=== PATIENT | female | born 1940 | race American Indian/Alaskan Native ===

== ENCOUNTER 2017-04-16 17:22 | Emergency (ER) | payer MEDICARE ==
--- NOTE | 2017-04-16 17:34 | ED PDOC ---
Arrival/HPI - General Time Seen by Provider: 04/16/17 17:27 Historian: Patient - History of Present Illness Narrative History of Present Illness (Text): 04/16/17 17:29 76 y/o female, pmh including DVT/PE/vertigo/cystitis, nkda, on coumadin 4mg po qd (last INR doesn't remember), c/o lower back pain x 2 days with no fall or trauma. aching pain, tightness sensation, no urinary symptoms, no fall or trauma, no chest pain or shortness of breath, no urinary or bowel incontinence or retention, non radiating pain, no other medical or psychological complaints. Past Medical History - Provider Review Nursing Documentation Reviewed: Yes - Infectious Disease Hx of Infectious Diseases: None - Tetanus Immunization Tetanus Immunization: Unknown - Cardiac Hx Hypertension: Yes - Pulmonary Hx Respiratory Disorders: No - Neurological Hx Neurological Disorder: No - HEENT Hx HEENT Disorder: Yes (eye glasses) - Renal Hx Renal Disorder: No - Endocrine/Metabolic Hx Endocrine Disorders: No - Hematological/Oncological Hx Blood Disorders: No - Integumentary Hx Dermatological Disorder: No - Musculoskeletal/Rheumatological Hx Arthritis: Yes - Gastrointestinal Hx Gastrointestinal Disorders: No - Genitourinary/Gynecological Hx Genitourinary Disorders: No - Psychiatric Hx Depression: No Hx Emotional Abuse: No Hx Physical Abuse: No Hx Substance Use: No - Past Surgical History Past Surgical History: No Previous - Surgical History Other/Comment: "DVT Filters" PE - Anesthesia Hx Anesthesia: No Hx Anesthesia Reactions: No Hx Malignant Hyperthermia: No - Suicidal Assessment Feels Threatened In Home Enviroment: No Family/Social History - Physician Review Nursing Documentation Reviewed: Yes Family/Social History: Unknown Family HX Smoking Status: Never Smoked Hx Alcohol Use: No Hx Substance Use: No Hx Substance Use Treatment: No Allergies/Home Meds Allergies/Adverse Reactions: Allergies No Known Allergies Allergy (Verified 04/16/17 17:49) Home Medications: Home Meds Medication Instructions Recorded Confirmed Acetaminophen [Non-Aspirin Pain 500 mg PO PRN PRN 04/16/17 04/16/17 Relief] Allopurinol [Zyloprim] 100 mg PO DAILY 04/16/17 04/16/17 Cholecalciferol (Vitamin D3) 2,000 unit PO DAILY 04/16/17 04/16/17 [Vitamin D3] Diclofenac Sodium [Voltaren] 1 appl TP QID 04/16/17 04/16/17 Losartan/Hydrochlorothiazide 1 each PO DAILY 04/16/17 04/16/17 [Losartan-Hctz 100-25 mg Tab] Warfarin Sodium [Jantoven] 4 mg PO DAILY 04/16/17 04/16/17 Review of Systems - Review of Systems Constitutional: absent: Fatigue, Fevers Eyes: absent: Vision Changes ENT: absent: Hearing Changes Respiratory: absent: SOB, Cough Cardiovascular: absent: Chest Pain Gastrointestinal: absent: Abdominal Pain, Nausea, Vomiting Musculoskeletal: Back Pain. absent: Arthralgias, Neck Pain, Joint Swelling, Myalgias Skin: absent: Rash, Pruritis, Skin Lesions, Laceration, Abscess, Ulcer, Cellulitis Neurological: absent: Headache, Dizziness, Focal Weakness Psychiatric: absent: Anxiety, Depression, Suicidal Ideation Physical Exam Vital Signs Temp Pulse Resp BP Pulse Ox 04/16/17 19:18 93 H 16 103/74 98 04/16/17 17:25 98.2 F 75 18 145/76 98 - Systems Exam Head: Present: Atraumatic, Normocephalic Pupils: Present: PERRL Extroacular Muscles: Present: EOMI Conjunctiva: Present: Normal Mouth: Present: Moist Mucous Membranes Neck: Present: Normal Range of Motion Respiratory/Chest: Present: Clear to Auscultation, Good Air Exchange. No: Respiratory Distress, Accessory Muscle Use Cardiovascular: Present: Regular Rate and Rhythm, Normal S1, S2. No: Murmurs Abdomen: Present: Normal Bowel Sounds. No: Tenderness, Distention, Peritoneal Signs Back: Present: Normal Inspection, Midline Tenderness, Paraspinal Tenderness, Other (LS spine: +ttp on the midline and rt. paraspinal muscle region, no rash, no cva tenderness, no sadding gait. ). No: CVA Tenderness, Pain with Leg Raise , Decubitus Ulcer Upper Extremity: Present: Normal Inspection. No: Cyanosis, Edema Lower Extremity: Present: Normal Inspection. No: Edema Neurological: Present: GCS=15, CN II-XII Intact, Speech Normal Skin: Present: Warm, Dry, Normal Color. No: Rashes Psychiatric: Present: Alert, Oriented x 3, Normal Insight, Normal Concentration Medical Decision Making ED Course and Treatment: 04/16/17 17:37 -PT/INR -CT Lumbar -Morphine 2mg IM/valium/lidoderm patch -Observe and reassess 04/16/17 18:43 -INR 2.67 -CT Lumbar spine show: Degenerative changes at virtually every level primarily facet arthropathy, ligamentum flavum hypertrophy. Pt. is unable to take NSAIDS for her inflammatory condition, will give decadron 6mg IM for antiinflammatory. -Pain decreased, pt. feels better. -I reviewed the [facility] report, pt. only has one tramadol prescription in 2016 and none in 2017, will give short course percocet. -Discharge home with percocet, lidoderm patch, continue the cane at home, follow up with your own pmd within 2 days, return to the ER for any new or worsening signs or symptoms. - Lab Interpretations Lab Results: Lab Results 04/16/17 18:05: PT 28.8 H, INR 2.67 H I have reviewed the lab results: Yes Interpretation: Abnormal lab values (INR 2.67) - RAD Interpretation Radiology Orders: 04/16/17 17:37 LUMBAR SPINE W/O CONTRAST [CT] Stat HISTORY: lower back pain x 2 days COMPARISON: None. TECHNIQUE: Axial computed tomography images were obtained of the lumbar spine without the use of intravenous contrast. Coronal and sagittal reformatted images were created and reviewed. Radiation dose: Total exam DLP = 742.28 mGy-cm. This CT exam was performed using one or more of the following dose reduction techniques: Automated exposure control, adjustment of the mA and/or kV according to patient size, and/or use of iterative reconstruction technique. FINDINGS: VERTEBRAE: Unremarkable. No fracture. Normal alignment. DISCS/SPINAL CANAL/NEURAL FORAMINA: L1-2: Unremarkable. L2-3: Moderate facet arthropathy. No evidence of canal stenosis or foraminal disease. L3-4: Bulging annulus, mild without focal disc herniation. Moderate -severe facet arthropathy. L4-5: Degenerative changes, primarily facet heart proper the, mild annular bulge, no focal disc herniation. L5-S1: Mild degenerative changes. PARASPINAL SOFT TISSUES: Unremarkable. OTHER FINDINGS: Markedly enlarged uterus with multiple calcified masses/fibroids. Sacroiliac joints display degenerative change. 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 IMPRESSION: No acute findings related to/accounting for the clinical presentation. Degenerative changes at virtually every level primarily facet arthropathy, ligamentum flavum hypertrophy. Additional benign and/or incidental findings described above. Straight Line Edger: Radiologist - Medication Orders Current Medication Orders: Discontinued Medications Dexamethasone (Decadron Inj) 6 mg IM STAT STA Stop: 04/16/17 19:04 Last Admin: 04/16/17 19:15 Dose: 6 mg Diazepam (Valium) 5 mg PO ONCE ONE PRN Reason: Protocol Stop: 04/16/17 17:38 Last Admin: 04/16/17 18:09 Dose: 5 mg Lidocaine (Lidoderm) 1 ea TD STAT STA Stop: 04/16/17 17:38 Last Admin: 04/16/17 18:12 Dose: 1 ea Morphine Sulfate (Morphine) 2 mg IM STAT STA Stop: 04/16/17 17:38 Last Admin: 04/16/17 18:32 Dose: 2 mg - PA / [employer] / Resident Statement /DO has reviewed & agrees with the documentation as recorded. Disposition/Present on Arrival - Present on Arrival Any Indicators Present on Arrival: No History of DVT/PE: Yes History of Uncontrolled Diabetes: No Urinary Catheter: No History Surgical Site Infection Following: None - Disposition Have Diagnosis and Disposition been Completed?: Yes Diagnosis: Ligamentum flavum hypertrophy, Back pain Disposition: HOME/ ROUTINE Disposition Time: 19:02 Patient Plan: Discharge Condition: IMPROVED Additional Instructions: Discharge home with percocet, lidoderm patch, continue the cane at home, follow up with your own pmd within 2 days, return to the ER for any new or worsening signs or symptoms. Prescriptions: Lidocaine 5% [Lidoderm] 1 patch TOP DAILY #10 patch oxyCODONE/Acetaminophen [Percocet 5/325 mg Tab] 0.5 tab PO QID PRN #8 tab PRN Reason: Other Referrals: Joycelyn Schmitt, [Primary Care Provider] - Follow up with primary [facility] [Outside] - Follow up with primary
[2017-04-16] MEDS ORDERED: Morphine 2 mg/ml ISec IM STA (17:37)
[2017-04-16] MEDS ORDERED: Lidocaine 5% Patch TD STA (17:37)
[2017-04-16 17:44] VITALS: BMI 32.9
[2017-04-16 17:48] VITALS: TEMP 98.2; O2SAT 98
[2017-04-16 18:24] LABS: INR 2.67 (0.93-1.08)
--- NOTE | 2017-04-16 18:54 | CT ---
PROCEDURE: CT Lumbar Spine without contrast HISTORY: lower back pain x 2 days COMPARISON: None. TECHNIQUE: Axial computed tomography images were obtained of the lumbar spine without the use of intravenous contrast. Coronal and sagittal reformatted images were created and reviewed. Radiation dose: Total exam DLP = 742.28 mGy-cm. This CT exam was performed using one or more of the following dose reduction techniques: Automated exposure control, adjustment of the mA and/or kV according to patient size, and/or use of iterative reconstruction technique. FINDINGS: VERTEBRAE: Unremarkable. No fracture. Normal alignment. DISCS/SPINAL CANAL/NEURAL FORAMINA: L1-2: Unremarkable. L2-3: Moderate facet arthropathy. No evidence of canal stenosis or foraminal disease. L3-4: Bulging annulus, mild without focal disc herniation. Moderate -severe facet arthropathy. L4-5: Degenerative changes, primarily facet heart proper the, mild annular bulge, no focal disc herniation. L5-S1: Mild degenerative changes. PARASPINAL SOFT TISSUES: Unremarkable. OTHER FINDINGS: Markedly enlarged uterus with multiple calcified masses/fibroids. Sacroiliac joints display degenerative change. 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 IMPRESSION: No acute findings related to/accounting for the clinical presentation. Degenerative changes at virtually every level primarily facet arthropathy, ligamentum flavum hypertrophy. Additional benign and/or incidental findings described above.
[2017-04-16 19:19] VITALS: BP 103/74; PULSE 93; RESP 16
== END 2017-04-16 19:59 | disposition home or self-care (01) ==
LOC: ED 17:22
DX: M46.06 Spinal enthesopathy, lumbar region (principal); M54.5 Low back pain; Z79.01 Long term (current) use of anticoagulants
CPT/HCPCS: 72131; 85610; 96372; 99283; J1100; J2270